=== PATIENT | male | born 1985 | race African-American/Black ===

== ENCOUNTER 2020-03-15 22:21 | Emergency (ER) | payer SELFPAY ==
[~2020-03-15] VITALS: Ht 182.9 cm; Wt 84.0 kg
[2020-03-15 22:24] VITALS: BP 128/86
== END 2020-03-15 23:00 | disposition left against medical advice (07) ==
LOC: ER 22:21
DX: F14.188 Cocaine abuse with other cocaine-induced disorder (principal); S00.31XA Abrasion of nose, initial encounter; G89.29 Other chronic pain; M54.9 Dorsalgia, unspecified; X58.XXXA Exposure to other specified factors, initial encounter; Y93.89 Activity, other specified; Y92.89 Other specified places as the place of occurrence of the external cause
CPT/HCPCS: 93005; 99283